=== PATIENT | male | born 1950 | race Two or more races ===

== ENCOUNTER → 2024-09-07 | Outpatient (CLI) | payer MEDICARE, BC, SELFPAY ==
--- NOTE | 2024-09-07 15:30 | XR_ITS ---
Examination: Arterial duplex lower extremity study. Date and time of exam: September 07, 2024, 1551 hours INDICATIONS: Decreased pulse in both feet noticed beginning 3 months ago on examination with bilateral leg pain beginning 3 months ago Findings: Duplex sonographic imaging of the lower extremity arteries using B-mode/Chavez scale imaging and Doppler spectral analysis and color flow. Ankle brachial indices have been recorded. Right common femoral artery demonstrates triphasic flow. Right superficial femoral artery demonstrates triphasic flow. Right popliteal artery demonstrates triphasic flow. Right posterior tibial artery demonstrated biphasic flow. Right ankle/brachial index is 1.4. Left common femoral artery demonstrates triphasic flow. Left superficial femoral artery demonstrates triphasic flow. Left popliteal artery demonstrates triphasic flow. Left posterior tibial artery demonstrated triphasic flow. Left ankle/brachial index is 1.3. Impression: Negative for significant obstructive arterial disease
== END | disposition home or self-care (01) ==
PROVIDERS: PCP Internal Medicine; Referring Provider Internal Medicine; Visit Provider Internal Medicine
DX: R09.89 Other specified symptoms and signs involving the circulatory and respiratory systems (principal)
CPT/HCPCS: 93925